=== PATIENT | male | born 1985 | race Caucasian/White ===

== ENCOUNTER 2017-09-11 01:03 | Emergency (ER) | payer BC ==
[2017-09-11] MEDS ORDERED: Ketorolac INJ* 15 MG/ML 1 ML VIAL IV ONE (01:31)
[2017-09-11] MEDS ORDERED: fentaNYL* 50 MCG/ML 2 ML VIAL (100 MCG VIAL) IV ONE (01:31)
[2017-09-11 01:52] LABS: ABS Basophils 0 10^3/ul (0-0.2); ABS Eosinophils 0.1 10^3/ul (0-0.6); ABS Monocytes 0.6 10^3/ul (0-0.8); ABS Neutrophils 3.9 10^3/ul (1.5-7.7); ABS Nucleated RBC 0 10^3/ul; Eosinophil % 2.1 % (0-6); Hematocrit 48 % (42-52); Hemoglobin 16.7 g/dl (14.0-18.0); Lymphocyte % 30.4 % (25-47); Mean Corpuscular HGB Conc 35 g/dl (31-36); Mean Corpuscular Hemoglobin 34 pg (27-31); Mean Corpuscular Volume 96 fL (80-94); Nucleated Red Blood Cells % 0; Platelet Count 214 10^3/ul (150-450); Red Blood Count 4.95 10^6/ul (4.0-5.4); Red Cell Distribution Width 12 % (10.5-15); White Blood Count 6.7 10^3/ul (3.5-10.8)
[2017-09-11 02:58] VITALS: BP 144/85
[2017-09-11 03:42] LABS: Urine Appearance Clear; Urine Blood Negative (Negative); Urine Color Straw; Urine Ketones Negative (Negative); Urine Protein 2+(100 mg/dL) (Negative); Urine Specific Gravity 1.004 (1.010-1.030); Urine Urobilinogen Negative (Negative)
--- NOTE | 2017-09-11 04:28 | ED ---
Hitesh Thompson Julia, scribed for Bryan Carter MD on 09/11/17 at 0136 . Complex/Multi-Sys Presentation - HPI Summary HPI Summary: This patient is a 31 year old M BIBA to [facility] with a chief complaint of sudden right sided numbness, and right flank pain. Patient reports weakness with onset of symptoms that is currently resolved. Denies falling with onset symptoms, LOC , and headache. The patient rates the pain 5/10 in severity. Patient admits to drinking 5 beers tonight. - History Of Current Complaint Chief Complaint: EDWeakness Time Seen by Provider: 09/11/17 01:28 Hx Obtained From: Patient Onset/Duration: Lasting Hours Timing: Constant Severity Currently: Moderate Location: Pain At: - rigth abdomen Associated Signs And Symptoms: Positive: Weakness, Other - numbness. Negative: Syncope - Allergies/Home Medications Allergies/Adverse Reactions: Allergies Allergy/AdvReac Type Severity Reaction Status Date / Time No Known Allergies Allergy Verified 09/11/17 01:10 PMH/Surg Hx/FS Hx/Imm Hx Sensory History: Denies: Hx Legally Blind EENT History: Denies: Hx Deafness Infectious Disease History: No Infectious Disease History: Denies: Traveled Outside the [place] in Last 30 Days - Family History Known Family History: Positive: Hypertension - Social History Alcohol Use: Occasionally Substance Use Type: Reports: None Smoking Status (MU): Heavy Every Day Tobacco Smoker Review of Systems Positive: Abdominal Pain Positive: Weakness, Numbness. Negative: Headache, Syncope All Other Systems Reviewed And Are Negative: Yes Physical Exam Triage Information Reviewed: Yes Vital Signs On Initial Exam: Initial Vitals Temp Pulse Resp BP Pulse Ox 98.4 F 110 18 167/111 99 09/11/17 01:10 09/11/17 01:10 09/11/17 01:10 09/11/17 01:10 09/11/17 01:10 Vital Signs Reviewed: Yes Appearance: Positive: Pain Distress Skin: Positive: Warm, Dry. Negative: Diaphoretic Head/Face: Positive: Normal Head/Face Inspection Eyes: Positive: Normal, EOMI, SARITHA, Conjunctiva Clear ENT: Positive: Normal ENT inspection, Hearing grossly normal, Pharynx normal Neck: Positive: Supple, Nontender Respiratory/Lung Sounds: Positive: Clear to Auscultation, Breath Sounds Present Cardiovascular: Positive: Normal, RRR, S1, S2. Negative: Murmur Abdomen Description: Positive: Other: - tender on right upper abdomen and flank , no flank ecchymosis. Negative: CVA Tenderness (L), Peritoneal Signs Bowel Sounds: Positive: Present Musculoskeletal: Positive: Normal, Strength/ROM Intact Neurological: Positive: Normal, Sensory/Motor Intact, Alert, Oriented to Person Place, Time, CN Intact II-III, Reflexes Intact. Negative: Abnormal Gait, EOM Palsy, Facial Droop, Focal Deficit @, Slurred Speech, Ataxic Gait Psychiatric: Positive: Normal, Affect/Mood Appropriate Diagnostics - Vital Signs Vital Signs Temp Pulse Resp BP Pulse Ox 09/11/17 01:18 113 18 152/97 09/11/17 01:10 98.4 F 110 18 167/111 99 - Laboratory Lab Results: Lab Results 09/11/17 09/11/17 Range/Units 01:37 01:37 WBC 6.7 (3.5-10.8) 10^3/ul RBC 4.95 (4.0-5.4) 10^6/ul Hgb 16.7 (14.0-18.0) g/dl Hct 48 (42-52) % MCV 96 H (80-94) fL MCH 34 H (27-31) pg MCHC 35 (31-36) g/dl RDW 12 (10.5-15) % Plt Count 214 (150-450) 10^3/ul MPV 8.0 (7.4-10.4) um3 Neut % (Auto) 58.5 (38-83) % Lymph % (Auto) 30.4 (25-47) % [place] % (Auto) 8.3 H (0-7) % Eos % (Auto) 2.1 (0-6) % Baso % (Auto) 0.7 (0-2) % Absolute Neuts (auto) 3.9 (1.5-7.7) 10^3/ul Absolute Lymphs (auto) 2.0 (1.0-4.8) 10^3/ul Absolute Monos (auto) 0.6 (0-0.8) 10^3/ul Absolute Eos (auto) 0.1 (0-0.6) 10^3/ul Absolute Basos (auto) 0 (0-0.2) 10^3/ul Absolute Nucleated RBC 0 10^3/ul Nucleated RBC % 0 Sodium 142 (139-145) mmol/L Potassium 4.3 (3.5-5.0) mmol/L Chloride 104 (101-111) mmol/L Carbon Dioxide 28 (22-32) mmol/L Anion Gap 10 (2-11) mmol/L BUN 11 (6-24) mg/dL Creatinine 1.12 (0.67-1.17) mg/dL Est GFR ( Amer) 99.0 (>60) Est GFR (Non-Af Amer) 77.0 (>60) BUN/Creatinine Ratio 9.8 (8-20) Glucose 97 (70-100) mg/dL Calcium 9.5 (8.6-10.3) mg/dL Total Bilirubin 0.30 (0.2-1.0) mg/dL AST 25 (13-39) U/L ALT 23 (7-52) U/L Alkaline Phosphatase 51 (34-104) U/L Total Protein 7.8 (6.4-8.9) g/dL Albumin 4.8 (3.2-5.2) g/dL Globulin 3.0 (2-4) g/dL Albumin/Globulin Ratio 1.6 (1-3) Lipase 38 (11.0-82.0) U/L Serum Alcohol 397 H (<10) mg/dL Result Diagrams: 09/11/17 01:37 09/11/17 01:37 Lab Statement: Any lab studies that have been ordered have been reviewed, and results considered in the medical decision making process. Re-Evaluation - Re-Evaluation First Re-Evaluation Time: 03:55 Change: Improved Comment: Pain is resolved. Discussed UA results and liklihood of kidney stone with patient. Patient agrees and would like to defer CT imaging. This is amenable as pain is resolved. Complex Multi-Symp Course/Dx - Diagnoses Provider Diagnoses: Kidney stone Discharge - Sign-Out/Discharge Documenting (check all that apply): Discharge/Admit/Transfer - Discharge Plan Condition: Good Disposition: HOME Patient Education Materials: Kidney Stones (ED) Referrals: No Primary Care Phys,NOPCP [Primary Care Provider] - Additional Instructions: If your pain comes back, take motrin or alleve. If that doesn't help enough, come back to the ER and we will complete your workup and get you medicated and comfortable. - Billing Disposition and Condition Condition: GOOD Disposition: HOME The documentation as recorded by the Hitesh hoang Julia accurately reflects the service I personally performed and the decisions made by me, Bryan Carter MD.
== END 2017-09-11 04:08 | disposition home or self-care (01) ==
LOC: EDBD → ED 01:03
DX: N20.0 Calculus of kidney (principal); Z72.0 Tobacco use
CPT/HCPCS: 36415; 80053; 80320; 81003; 81015; 83690; 85025; 96374; 96375; 99283; G0480; J1885; J3010